=== PATIENT | male | born 1975 | race Two or more races ===

== ENCOUNTER 2025-02-06 10:13 | Emergency (ER) | payer MEDICAID ==
[~2025-02-06] VITALS: Ht 172.7 cm; Wt 89.5 kg
--- NOTE | 2025-02-06 11:29 | Physician Documentation ---
History of Present Illness ~ Chief Complaint: Wound Stated Complaint: MD REFERRAL Time Seen by MD: 10:57 Primary Medical Doctor: None Source: patient, family HPI The patient is seen Today with complaints of an infection involving his left gluteus nathalia multiple infections along that area as well as the inner right buttocks just lateral to the gluteal cleft. Patient states he has been fighting infection from this area for about a month and states he had multiple abscesses lanced but states he never took any antibiotic for it. Patient states things started getting better in the wound started healing until about a week ago where they became more inflamed again and the infection returned. Patient denies any fever or chills. He has no other concern or complaint at this time. Tetanus within 5 years?: No Medication Reconciliation Allergies: Coded Allergies: No Known Allergies (Unverified , 02/06/25) Review of Systems Constitutional: Denies: chills, fever, weakness Eyes: Denies: pain, blurred vision ENT: Denies: ear pain, nose pain, throat pain, mouth pain Respiratory: Denies: cough, shortness of breath Cardiovascular: Denies: chest pain, palpitations Gastrointestinal: Denies: abdominal pain, nausea, vomiting Genitourinary: Denies: burning, dysuria Male Genitalia: Denies: penile discharge, testicular pain Neurological: Denies: headache, dizziness Musculoskeletal: Denies: pain, swelling Integumentary: Denies: rash, lesions Allergic/Immunologic: Denies: hives, itching Hematologic/Lymphatic: Denies: no symptoms reported Psychiatric: Denies: depression, anxiety Physical Exam Vital Signs: Temperature: 97.7, Heart Rate: 73, Respiratory Rate: 18, BP: 133/80, Pulse Oximetry: 98, Weight: 89.500 Oxygen Flow Rate: 0 Physical Exam General: Awake and Alert, no acute distress. HEENT: Conjunctiva pink, Sclera clear, Mucus Membranes moist. Neck: Supple without masses and tenderness. Resp: Unlabored. Lungs clear to auscultation bilaterally. Heart: Regular Rate and rhythm, normal S1 and S2 without murmur, rub or gallop. Extremities: No cyanosis,clubbing or edema. Skin: Exam has erythema and induration surrounding three separate open and draining wounds from the left buttocks. Patient has one smaller wound of the right buttocks just lateral to the gluteal cleft. Area is mildly tender to palpation. There is surrounding induration and purulent drainage from each site. Procedures I & D Procedure : Procedure Note Procedure note: I was able to debride the wound of the left buttocks with pickups and scissors. Patient tolerated well. Area was cleansed with iodine. A small amount of purulent drainage was expressed from the lateral most abscess of the left buttocks. Progress Results/Orders Results/Orders Orders - TAYLOR SANTANA PAC * Additional Wound Care Orders (02/06/25 12:20) Completed Orders - TAYLOR SANTANA PAC Sulfamethox/Trimetho. Ds Tab (Mayra Ds (02/06/25 11:40) Medications Received in ER Medications (Trade) Dose Ordered Sig/Jessica Route PRN Reason Start Time Stop Time Status Last Admin Dose Admin (Mayra DS tab) 1 tab ONCE ONCE PO 02/06/25 11:40 02/06/25 11:41 DC 02/06/25 11:56 1 TAB Vital Signs 02/06/25 02/06/25 02/06/25 10:16 10:38 11:54 Temp 97.7 97.7 97.7 Pulse 69 73 75 Resp 15 18 16 B/P (MAP) 114/70 133/80 (97) 128/79 (95) Pulse Ox 99 98 99 O2 Flow Rate 0 0 0 Medical Decision Making Findings The patient is seen Today with complaints of an infection involving his left gluteus nathalia multiple infections along that area as well as the inner right buttocks just lateral to the gluteal cleft. Patient states he has been fighting infection from this area for about a month and states he had multiple abscesses lanced but states he never took any antibiotic for it. Patient states things started getting better in the wound started healing until about a week ago where they became more inflamed again and the infection returned. Patient denies any fever or chills. He has no other concern or complaint at this time. Dose of Bactrim DS by mouth in the ED today. Prescription for Bactrim DS to be taken by mouth twice a day for 14 days was sent to patient's pharmacy [facility] on [address]. Patient will follow up with primary care in 2-5 days if no better as needed sooner. Patient will return to ED with any worsening, concerning or changing symptoms. Patient will continue daily dressing changes in wet-to-dry dressings for at least two weeks or until healed. Patient will follow up with primary care and get referral to wound care in 2-5 days if no better or as needed sooner. Departure Disposition: 01 HOME / SELF CARE / HOMELESS Impression: Primary Impression: Wound Additional Impression: Abscess Condition: Improved Discharge Instructions: Skin Abscess Additional Instructions: Dose of Bactrim DS by mouth in the ED today. Prescription for Bactrim DS to be taken by mouth twice a day for 14 days was sent to patient's pharmacy [facility]. Patient will follow up with primary care in 2-5 days if no better as needed sooner. Patient will return to ED with any worsening, concerning or changing symptoms. Patient will continue daily dressing changes in wet-to-dry dressings for at least two weeks or until healed. Patient will follow up with primary care and get referral to wound care in 2-5 days if no better or as needed sooner. Referrals: NO PRIMARY CARE PROVIDER (PCP) Prescriptions Sulfamethoxazole/Trimethoprim (Bactrim Ds Tablet) 800 Mg-160 Mg Tablet 1 TAB PO Q12H for 14 Days, #28 TAB Prov: TAYLOR SANTANA 02/06/25 Signature Scribe Signature: No scribe Attestation: No scribe TAYLOR SANTANA February 06, 2025 11:29
[2025-02-06 11:54] VITALS: TEMP 97.7
[2025-02-06] MEDS: sulfamethoxazole/trimethoprim DS (800/160mg) tablet PO ONE (11:56)
[2025-02-06] MEDS ORDERED: SULF1TAB49 PO (12:37)
[2025-02-06 13:00] VITALS: BP 115/57; PULSE 74; RESP 15; O2SAT 99
== END 2025-02-06 13:52 | disposition home or self-care (01) ==
LOC: ER 10:14
DX: L02.31 Cutaneous abscess of buttock (principal)
CPT/HCPCS: 10060; 99283